=== PATIENT | female | born 1945 | race Caucasian/White ===

== ENCOUNTER 2018-10-07 20:35 | Emergency (ER) | payer MEDICARE ==
[2018-10-07 20:51] VITALS: BP 134/82
--- NOTE | 2018-10-07 21:20 | ED ---
Skin Complaint - HPI Summary HPI Summary: 73 yr old female with the complaint of right middle finger redness, swelling. Onset over the past 3-4 days. She has some breaks in her skin over her volar and dorsal middle finger skin. She soaked the finger in warm salt water last evening. She had a fall in her garden this afternoon and landed on her right buttocks. She has some pain in the right hip but can bear weight very well. No CTLS spine pain. NO LOC. NO chest pain or back pain. She fell due to uneven surface in garden when working with . She aleta herself and has some discomfort in the angle of the right mandible with movement, but she closes and opens mouth, eats and talks without trouble. Teeth come together well. - History of Current Complaint Chief Complaint: UCUpperExtremity Time Seen by Provider: 10/07/18 20:47 Stated Complaint: RIGHT MIDDLE FINGER INFECTION Pain Intensity: 4 - Allergy/Home Medications Allergies/Adverse Reactions: Allergies Allergy/AdvReac Type Severity Reaction Status Date / Time iodine Allergy Nausea Verified 10/07/18 20:52 Home Medications: Home Medications Amiodarone TAB* [Cordarone TAB*] 200 mg PO DAILY 10/07/18 [History Confirmed ] Atorvastatin* [Lipitor*] 20 mg PO DAILY 10/07/18 [History Confirmed 10/07/18] DULoxetine CAP* [Cymbalta CAP*] 60 mg PO DAILY 10/07/18 [History Confirmed ] Fludrocortisone Acetate TAB* [Florinef TAB*] 0.1 mg PO DAILY 10/07/18 [History Confirmed 10/07/18] Gabapentin [Neurontin] 800 mg PO DAILY 10/07/18 [History Confirmed 10/07/18] Midodrine 5 mg PO DAILY 10/07/18 [History Confirmed 10/07/18] Olmesartan (NF) [Benicar (NF)] 5 mg PO DAILY 10/07/18 [History Confirmed ] Rivaroxaban TAB(*) [Xarelto 15 mg(*)] 15 mg PO DAILY 10/07/18 [History Confirmed 10/07/18] amLODIPine TAB* [Norvasc 5 mg TAB*] 5 mg PO DAILY 10/07/18 [History Confirmed ] rOPINIRole TAB* [Requip*] 4 mg PO DAILY 10/07/18 [History Confirmed 10/07/18] PMH/Surg Hx/FS Hx/Imm Hx - Surgical History Surgery Procedure, Year, and Place: 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 All Other Systems Reviewed And Are Negative: Yes Physical Exam Triage Information Reviewed: Yes Vital Signs On Initial Exam: Initial Vitals Temp Pulse Resp BP Pulse Ox 96.8 F 80 16 134/82 100 10/07/18 20:48 10/07/18 20:48 10/07/18 20:48 10/07/18 20:48 10/07/18 20:48 Vital Signs Reviewed: Yes Appearance: Positive: Well-Appearing, No Pain Distress Skin: Positive: Warm, Skin Color Reflects Adequate Perfusion, Other - cellultiis to the right middle finger Eyes: Positive: EOMI ENT: Positive: Normal ENT inspection Neck: Positive: Nontender Respiratory/Lung Sounds: Positive: Clear to Auscultation, Breath Sounds Present Cardiovascular: Positive: RRR. Negative: Murmur Abdomen Description: Negative: Distended Musculoskeletal: Positive: Other - right middle finger with erythema and soft tissue swelling. She has normal ROM of the joints of middle finger and open and closes finger well in a fist motion. Neurological: Positive: Sensory/Motor Intact, Alert, Oriented to Person Place, Time, CN Intact II-III Psychiatric: Positive: Normal Diagnostics - Vital Signs Vital Signs Temp Pulse Resp BP Pulse Ox 10/07/18 20:48 96.8 F 80 16 134/82 100 - Laboratory Lab Statement: Any lab studies that have been ordered have been reviewed, and results considered in the medical decision making process. Course/Dx - Course Course Of Treatment: 73 yr old with cellulitis to the right middle finger. Rx with Keflex. Patient and are going to call Dr Ellen Ponce tomorrow to find out when her last tetanus shot was as she does not want any unnecessary shots. They will get it updated tomorrow if necessary after calling Dr Ponce in the morning. - Diagnoses Provider Diagnoses: Cellulitis of right middle finger Discharge - Sign-Out/Discharge Documenting (check all that apply): Patient Departure All imaging exams completed and their final reports reviewed: No Studies - Discharge Plan Condition: Good Disposition: HOME Prescriptions: Cephalexin CAP* [Keflex CAP*] 500 mg PO QID #40 cap Patient Education Materials: Cellulitis (DC) Referrals: Jerome Ponce MD [Primary Care Provider] - 1 Day Additional Instructions: Call Dr Ponce tomorrow to be sure your tetanus shot is up to date. - Billing Disposition and Condition Condition: GOOD Disposition: Home
[2018-10-07] MEDS ORDERED: Cephalexin CAP* 500 MG PO ONE (21:26)
== END 2018-10-07 21:38 | disposition home or self-care (01) ==
LOC: UCCORT 20:35
DX: L03.011 Cellulitis of right finger (principal)
CPT/HCPCS: 99202; A9270-GY; G0463